=== PATIENT | male | born 1995 | race Caucasian/White ===

== ENCOUNTER 2017-05-31 03:09 | Emergency (ER) | payer SELFPAY ==
[2017-05-31 03:19] VITALS: BP 168/88; PULSE 132; RESP 18; TEMP 98.8; O2SAT 98
--- NOTE | 2017-05-31 03:22 | EDPHY ---
H & P Stated Complaint: med cleared for correction, report, jumped from a balcony to balcony to ground HPI/ROS: HPI CHIEF COMPLAINT: Left heel pain. Medical clearance for correction. HISTORY OF PRESENT ILLNESS: This patient is a 21-year-old male, denies having any significant medical history does not take any daily medications he presents emergency room with left heel pain. Patient is here for medical clearance for correction. According to the police. They were called by somebody in apartment this patient broke into the apartment and took things out of it. When the police arrived he jumped from the 3rd floor balcony to a 2nd floor balcony and then the 2nd floor balcony to the ground. He then rolled. And then started running. He ran from the police. They brought him into the emergency room for left heel pain for medical clearance for correction. There are no other signs of significant injury except abrasions to his back and abrasion to his right knee. However he denies any significant pain anywhere except for his left heel. Patient admits to small amount of alcohol this evening. Denies illicit drugs. Past Medical History: No significant medical history Past Surgical History: No significant surgical history Social History: [employer] student, lives locally, denies daily use of drugs alcohol tobacco. Has alcohol this evening. Family History: Noncontributory ROS REVIEW OF SYSTEMS: A comprehensive 10 point review of systems is otherwise negative aside from elements mentioned in the history of present illness. Exam Constitutional appears well nontoxic not intoxicated, triage nursing summary reviewed, vital signs reviewed, awake/alert. Vital signs noted to be tachycardic upon arrival. Eyes normal conjunctivae and sclera, EOMI, PERRLA. HENT normal inspection, atraumatic, moist mucus membranes, no epistaxis, neck supple/ no meningismus, no raccoon eyes. Respiratory clear to auscultation bilaterally, normal breath sounds, no respiratory distress, no wheezing. Cardiovascular tachycardic, regular rhythm, no murmur, no edema, distal pulses normal. Gastrointestinal soft, non-tender, no rebound, no guarding, normal bowel sounds, no distension, no pulsatile mass. Genitourinary no CVA tenderness. Musculoskeletal left foot: Good distal pulse. Good cap refill. No obvious signs of swelling or trauma to left foot. Mild tender palpation in the heel the left foot. Otherwise unremarkable. no midline vertebral tenderness, full range of motion, no calf swelling, no tenderness of extremities, no meningismus , good pulses, neurovascularly intact. Skin multiple abrasions throughout his back, an abrasion to his right knee. Neurologic awake, alert and oriented x 3, AAOx3, moves all 4 extremities equally, motor intact, sensory intact, CN II-XII intact, normal cerebellar, normal vision, normal speech. Psychiatric normal mood/affect. Heme/Lymph/Immune no lymphadenopathy. Differential Diagnosis: Includes but is not limited to in a particular left foot contusion, calcaneal fracture, calcaneal contusion, dislocation, multiple abrasions, need for wound care Medical Decision Making: Plan for this patient will clean up his right knee abrasion and dressed appropriately. Additionally will x-ray the left heel. If this heel x-ray is normal will allow him to be medically cleared and discharged to correction. Re-evaluation: X-ray reviewed of the calcaneus. No evidence of fracture. Image interpreted myself. His abrasion on his right knee has been cleaned and dressed appropriately. He is medically cleared for correction. Return precautions discussed with the patient about his wounds. Source: Patient, Police, EMS - Personal History Current Tetanus/Diphtheria Vaccine: Yes Current Tetanus Diphtheria and Acellular Pertussis (TDAP): Yes - Medical/Surgical History Hx Asthma: No Hx Chronic Respiratory Disease: No Hx Diabetes: No Hx Cardiac Disease: No Hx Renal Disease: No Hx Cirrhosis: No Hx Alcoholism: No Hx HIV/AIDS: No Hx Splenectomy or Spleen Trauma: No Other PMH: denies - Social History Smoking Status: Never smoked Constitutional: Initial Vital Signs Temperature (C) 37.1 C 05/31/17 03:10 Heart Rate 132 H 05/31/17 03:10 Respiratory Rate 18 05/31/17 03:10 Blood Pressure 168/88 H 05/31/17 03:10 O2 Sat (%) 98 05/31/17 03:10 O2 Delivery Mode Room Air Allergies/Adverse Reactions: No Known Allergies Allergy (Unverified 05/31/17 03:19) Home Medications: Medication Instructions Recorded NK [No Known Home Meds] 05/31/17 Departure - Departure Disposition: Home, Routine, Self-Care Clinical Impression: Foot contusion Qualifiers: Encounter type: initial encounter Laterality: left Qualified Code(s): S90.32XA - Contusion of left foot, initial encounter Condition: Good Instructions: Foot Contusion (ED), Abrasion (ED) Additional Instructions: 1. Medically cleared for correction. Referrals: Patient,NotPresent [Unknown] - As per Instructions
== END 2017-05-31 03:40 | disposition home or self-care (01) ==
DX: S90.32XA Contusion of left foot, initial encounter (principal); W13.0XXA Fall from, out of or through balcony, initial encounter; Y92.039 Unspecified place in apartment as the place of occurrence of the external cause; Y99.8 Other external cause status; Y93.02 Activity, running